=== PATIENT | female | born 1965 | race Caucasian/White ===

== ENCOUNTER 2016-08-27 09:55 | Day surgery (SDC) | payer OTHER ==
[~2016-08-27] VITALS: Ht 154.9 cm; Wt 85.6 kg
[~2016-08-27 09:55] MED LIST: MULT1CAP57
[2016-08-27 10:56] VITALS: Ht 154.9 cm; Wt 85.6 kg
[2016-08-27 11:16] VITALS: BP 110/58; RESP 14
[2016-08-27] MEDS ORDERED: MIDAZOLAM 1 MG/ML 2 ML INJ ONE ×2 (12:58)
[2016-08-27] MEDS ORDERED: FENTAnyl 50 MCG/ML VIAL ONE (12:58)
[2016-08-27 13:11] VITALS: BP 126/74; PULSE 72; RESP 24
--- NOTE | 2016-08-27 20:07 | GILP ---
DATE OF PROCEDURE: NAME OF PROCEDURE: Colonoscopy. SURGEON: Tod Brady MD PREOPERATIVE DIAGNOSIS: Screening colonoscopy. POSTOPERATIVE DIAGNOSES 1. Colonoscopy all the way to the cecum. 2. Poor prep making the exam suboptimal. 3. Internal hemorrhoids. 4. No gross neoplasm was identified. INDICATION FOR THE PROCEDURE: Ms. Darlyn Doran is a 51-year-old female patient who was scheduled for screening colonoscopy. The procedure and possible complications are well-explained to the patient, she understood and conse nted to the procedure. DESCRIPTION OF PROCEDURE: Under the influence of fentanyl and Versed, the colonoscope was carefully introduced into the rectum. Under direct vision, it was advanced all the way to the cecum. She tolerated the procedure well and there was no complication from the procedure. At the end of procedures, she was awake with stable vital signs and she was discharged home in the care of her f amily. FINDINGS: The patient had poor prep making the exam very suboptimal. She was noted to have interna l hemorrhoids. More than 1400 mL of fluid were aspirated from the colon. No gross neoplasm was ana ntified. IMPRESSION 1. Colonoscopy all the way to the cecum. 2. Poor prep, and more than 1400 mL of fluid were aspirated from the colon. 3. Internal hemorrhoids. 4. No gross neoplasm was identified. PLAN: Because of the poor prep and suboptimal nature of the examination, the patient will need repe at colonoscopy with a better preparation within 2 years. Dictated By: TOD NGUYEN/BRODY Conf#: [id number] DID#: [id number]
== END 2016-08-27 16:25 | disposition home or self-care (01) ==
LOC: GIL 09:55
PROVIDERS: ATTEND Internal Medicine Gastroenterology
DX: Z12.11 Encounter for screening for malignant neoplasm of colon (principal); K64.8 Other hemorrhoids
CPT/HCPCS: 45378; J2250; J3010